=== PATIENT | female | born 1970 | race Two or more races ===

== ENCOUNTER 2016-04-23 14:09 | Emergency (ER) | payer OTHER ==
[~2016-04-23] VITALS: Ht 152.4 cm; Wt 77.1 kg
[2016-04-23] MEDS ORDERED: SODIUM CHLORIDE 0.9% 1,000 ML IVB ONE (14:33)
[2016-04-23] MEDS ORDERED: HYDROmorphone HCL 2 MG/ML VL IV ONE (14:45)
[2016-04-23] MEDS ORDERED: ONDANSETRON HCL 4 MG/2 ML VIAL IV ONE (14:45)
[2016-04-23 15:08] LABS: DEFINITIVE VIEW TRANSMISSION
[2016-04-23 15:14] LABS: Eosinophils # (auto) 0.9 uL; Platelet Count (auto) 472 10^3/uL (140-450)
[2016-04-23 15:15] LABS: Albumin 3.4 g/dL (3.4-5.0); Calcium 8.9 mg/dL (8.5-10.1); Potassium 3.6 mmol/L (3.5-5.1)
[2016-04-23 15:18] LABS: BUN/Creatinine Ratio 15.7; Bilirubin, Total 0.2 mg/dL (0.2-1.0); Total Protein 7.4 g/dL (6.4-8.2)
[2016-04-23 15:36] LABS: Basophils # (auto) 0.1 uL; Basophils % (auto) 0.7 % (0.0-2.0); Eosinophils % (auto) 8.3 % (0.0-7.0); Hematocrit 40.3 % (36.0-46.0); Hemoglobin 12.8 g/dL (12.2-16.2); Lymphocytes % (auto) 26.9 % (10.0-50.0); Mean Corpuscular Hemoglobin 26.9 pg (28.0-32.0); Mean Corpuscular Hgb Conc. 31.8 g/dL (32.0-36.0); Mean Corpuscular Volume 84.7 fL (80.0-100.0); Mean Platelet Volume 8.4 fL (7.4-10.4); Monocytes # (auto) 0.6 uL; Monocytes % (auto) 5.3 % (0.0-12.0); Neutrophils # (auto) 6.6 uL; Neutrophils % (auto) 58.8 % (37.0-80.0); Red Cell Distribution Width 13.9 % (11.6-16.0); White Blood Cell 11.3 10^3/uL (4.4-10.8)
[2016-04-23 16:13] VITALS: BP 165/89
[2016-04-23 17:01] LABS: Urine Bilirubin Negative (Negative); Urine Color Yellow (Yellow); Urine Glucose Normal (Normal); Urine Ketone Negative (Negative); Urine Mucus FEW (None Seen); Urine Nitrite Negative (Negative); Urine RBC 313 /hpf (0 - 4); Urine Squamous Epithelial Cell FEW /hpf (<5); Urine Urobilinogen Normal (Negative); Urine pH 6.5 (5.0-8.0)
[2016-04-23 17:02] LABS: Urine Blood 3+ /uL (Negative)
== END 2016-04-23 17:40 | disposition home or self-care (01) ==
LOC: EDUNIT# 14:09 → ER 14:17
DX: N20.9 Urinary calculus, unspecified (principal); I10 Essential (primary) hypertension; R19.7 Diarrhea, unspecified; Z88.6 Allergy status to analgesic agent
CPT/HCPCS: 36415; 74176; 80053; 81001; 82150; 83690; 84702; 85025; 93005; 94761; 96361; 96374; 96375; 99285; J1170; J2405; J7030

== ENCOUNTER 2020-07-06 19:59 | Emergency (ER) | payer OTHER ==
[~2020-07-06] VITALS: Ht 152.4 cm; Wt 77.1 kg
[2020-07-06] MEDS ORDERED: IOHEXOL 300 MG/ML 100ML BOTTLE IJ ONE (20:39)
[2020-07-06 21:37] LABS: Basophils # (auto) 0.1 10 ^3/uL (0-0.2); Basophils % (auto) 0.6 % (0.0-2.0); Eosinophils # (auto) 0.5 10 ^3/uL (0-0.8); Eosinophils % (auto) 3.8 % (0.0-7.0); Hemoglobin 14.7 g/dL (12.2-16.2); Lymphocytes # (auto) 2.5 10 ^3/uL (0.4-5.4); Lymphocytes % (auto) 19.4 % (10.0-50.0); Mean Corpuscular Hemoglobin 28.5 pg (28.0-32.0); Mean Corpuscular Hgb Conc. 33.4 g/dL (32.0-36.0); Mean Corpuscular Volume 85.4 fL (80.0-100.0); Monocytes # (auto) 0.6 10 ^3/uL (0-1.3); Monocytes % (auto) 4.7 % (0.0-12.0); Neutrophils # (auto) 9.1 10 ^3/uL (1.6-8.6); Neutrophils % (auto) 71.5 % (37.0-80.0); Nucleated Red Blood Cells % 0.4 %; Platelet Count (auto) 383 10^3/uL (140-450); Red Blood Cells 5.15 10^6/uL (4.0-5.20); Red Cell Distribution Width 13.6 % (11.8-14.3); White Blood Cell 12.7 10^3/uL (4.4-10.8)
[2020-07-06 22:04] LABS: Albumin 3.8 g/dL (3.4-5.0); Calcium 9.2 mg/dL (8.5-10.1); Potassium 4.1 mmol/L (3.5-5.1)
[2020-07-06 22:06] LABS: BUN/Creatinine Ratio 16.4; Bilirubin, Total 0.4 mg/dL (0.2-1.0); Total Protein 7.9 g/dL (6.4-8.2)
[2020-07-06] MEDS ORDERED: KETOROLAC TROMETH 60MG/2ML VIAL IM ONE (22:45)
[2020-07-06] MEDS ORDERED: ONDANSETRON ODT 4 MG TAB PO ONE (22:45)
[2020-07-06 22:50] LABS: Urine Bacteria NONE SEEN /hpf (None Seen); Urine Blood 3+ /uL (Negative); Urine Mucus FEW (None Seen); Urine Specific Gravity 1.016 (1.001-1.035); Urine WBC 12 /hpf (0 - 5)
== END 2020-07-06 23:43 | disposition home or self-care (01) ==
LOC: ER 19:59
DX: N39.0 Urinary tract infection, site not specified (principal); N83.202 Unspecified ovarian cyst, left side; N83.201 Unspecified ovarian cyst, right side; K80.20 Calculus of gallbladder without cholecystitis without obstruction; N20.0 Calculus of kidney; I10 Essential (primary) hypertension; E89.0 Postprocedural hypothyroidism; Z90.89 Acquired absence of other organs; Z88.5 Allergy status to narcotic agent
CPT/HCPCS: 36415; 74176; 80053; 81001; 83605; 85025; 96372; 99284; J1885; Q0162

== ENCOUNTER 2020-07-13 01:56 | Emergency (ER) | payer MEDICAID, OTHER ==
[~2020-07-13] VITALS: Ht 152.4 cm; Wt 74.8 kg
[2020-07-13 02:48] LABS: Basophils # (auto) 0.2 10 ^3/uL (0-0.2); Basophils % (auto) 1.3 % (0.0-2.0); Eosinophils # (auto) 0.2 10 ^3/uL (0-0.8); Eosinophils % (auto) 1.6 % (0.0-7.0); Hematocrit 42.5 % (36.0-46.0); Hemoglobin 14.5 g/dL (12.2-16.2); Lymphocytes # (auto) 1.8 10 ^3/uL (0.4-5.4); Lymphocytes % (auto) 13.4 % (10.0-50.0); Mean Corpuscular Hgb Conc. 34.1 g/dL (32.0-36.0); Mean Corpuscular Volume 85.3 fL (80.0-100.0); Monocytes # (auto) 0.8 10 ^3/uL (0-1.3); Monocytes % (auto) 5.7 % (0.0-12.0); Neutrophils # (auto) 10.5 10 ^3/uL (1.6-8.6); Nucleated Red Blood Cells % 0.1 %; Platelet Count (auto) 392 10^3/uL (140-450); Red Blood Cells 4.98 10^6/uL (4.0-5.20); Red Cell Distribution Width 13.5 % (11.8-14.3); White Blood Cell 13.5 10^3/uL (4.4-10.8)
[2020-07-13 02:55] LABS: Urine Bacteria NONE SEEN /hpf (None Seen); Urine Blood 1+ /uL (Negative); Urine WBC 1 /hpf (0 - 5)
[2020-07-13 03:18] LABS: Amylase 57 U/L (25-115); Anion Gap 9 (5-15); BUN/Creatinine Ratio 15.9; Blood Urea Nitrogen 22 mg/dL (7-18); Carbon Dioxide 24 mmol/L (21-32); Chloride 106 mmol/L (98-107); GFR African American 52 mL/min; GFR Non-African American 43 mL/min; Glucose 141 mg/dL (74-106); Lipase 54 U/L (73-393); Potassium 3.6 mmol/L (3.5-5.1); Sodium 139 mmol/L (136-145)
[2020-07-13 03:25] LABS: Alanine Aminotransferase 52 U/L (13-56); Albumin 3.8 g/dL (3.4-5.0); Alkaline Phosphatase 89 U/L (45-117); Aspartate Aminotransferase 24 U/L (15-37); Bilirubin, Total 0.5 mg/dL (0.2-1.0); Total Protein 8.3 g/dL (6.4-8.2)
[2020-07-13] MEDS ORDERED: MORPHINE SULFATE 4 MG/ML SYR/VIAL IV ONE (05:15)
[2020-07-13] MEDS ORDERED: ONDANSETRON HCL 4 MG/2 ML VIAL IV ONE ×2 (05:15→08:15)
[2020-07-13] MEDS ORDERED: HYDROmorphone HCL 2 MG/ML VL IV ONE (05:30)
[2020-07-13] MEDS ORDERED: SODIUM CHLORIDE 0.9% 1,000 ML IV ONE ×2 (06:45)
[2020-07-13] MEDS ORDERED: TAMSULOSIN HYDROCHLORIDE 0.4 MG CAP PO ONE (06:45)
[2020-07-13] MEDS ORDERED: KETOROLAC TROMETH 30 MG/ML 1ML VIAL IV ONE ×2 (08:15→12:30)
[2020-07-13 10:00] VITALS: BP 102/47
== END 2020-07-13 12:43 | disposition home or self-care (01) ==
LOC: ER 01:56
DX: N13.2 Hydronephrosis with renal and ureteral calculous obstruction (principal); N83.202 Unspecified ovarian cyst, left side; N83.201 Unspecified ovarian cyst, right side; Z20.822 Contact with and (suspected) exposure to COVID-19; I10 Essential (primary) hypertension; Z90.49 Acquired absence of other specified parts of digestive tract
CPT/HCPCS: 36415; 74176; 76830; 76856; 80053; 81001; 82150; 83605; 83690; 84484; 85025; 87426; 96361; 96374; 96375; 96376; 99285; J1170; J1885; J2405; J7030

== ENCOUNTER 2021-11-27 20:21 | Emergency (ER) | payer MEDICAID ==
[~2021-11-27] VITALS: Ht 152.4 cm; Wt 80.0 kg
[2021-11-27 21:34] LABS: Hematocrit 39.5 % (36.0-46.0); Hemoglobin 12.9 g/dL (12.2-16.2); Mean Corpuscular Hgb Conc. 32.7 g/dL (32.0-36.0); Mean Corpuscular Volume 85.5 fL (80.0-100.0); Red Blood Cells 4.62 10^6/uL (4.0-5.20); Red Cell Distribution Width 13.9 % (11.8-14.3); White Blood Cell 10.1 10^3/uL (4.4-10.8)
[2021-11-27 21:35] LABS: Albumin 3.6 g/dL (3.4-5.0); BUN/Creatinine Ratio 22.1; Calcium 8.2 mg/dL (8.5-10.1); Potassium 3.6 mmol/L (3.5-5.1)
[2021-11-27 21:36] LABS: Basophils % (manual) 0 (0.0-2.0); Blast Cells 0; Metamyelocytes % 0; Myelocytes % 0; Promyelocytes % 0; Reactive Lymphocytes 0
[2021-11-27 21:37] LABS: Bilirubin, Total 0.2 mg/dL (0.2-1.0); Total Protein 6.9 g/dL (6.4-8.2)
[2021-11-27 22:28] LABS: Band Neutrophils % (manual) 4; Eosinophils % (manual) 3 (0-7); Lymphocytes % (manual) 16 (10.0-50.0); Monocytes % (manual) 10 (0-12)
[2021-11-28 01:04] VITALS: BP 166/82
== END 2021-11-28 00:58 | disposition home or self-care (01) ==
LOC: ER 20:21
DX: R07.89 Other chest pain (principal); I10 Essential (primary) hypertension; E03.9 Hypothyroidism, unspecified; G43.909 Migraine, unspecified, not intractable, without status migrainosus; Z90.49 Acquired absence of other specified parts of digestive tract; Z90.89 Acquired absence of other organs; Z88.5 Allergy status to narcotic agent; Z88.1 Allergy status to other antibiotic agents
CPT/HCPCS: 36415; 71045; 80053; 83880; 84484; 85007; 85027; 93005

== ENCOUNTER 2023-08-18 08:30 | Emergency (ER) | payer MEDICAID, OTHER ==
[~2023-08-18] VITALS: Ht 172.7 cm; Wt 67.8 kg
[2023-08-18 09:32] VITALS: TEMP 98.4
[2023-08-18 10:01] LABS: Urine Bacteria None Seen /hpf (None Seen)
[2023-08-18 10:17] LABS: Urine Blood Negative /uL (Negative); Urine Clarity Clear (Clear); Urine Color Light-Yellow (Yellow); Urine Protein, UAD TRACE (Negative); Urine Specific Gravity 1.042 (1.001-1.035); Urine Urobilinogen Normal (Negative); Urine WBC 1 /hpf (0 - 5); Urine pH 5.5 (5.0-9.0)
[2023-08-18 10:23] LABS: Basophils # (auto) 0.1 10 ^3/uL (0-0.2); Basophils % (auto) 1.9 % (0.0-2.0); Eosinophils # (auto) 0.3 10 ^3/uL (0-0.8); Eosinophils % (auto) 4.4 % (0.0-7.0); Hematocrit 44.5 % (36.0-46.0); Lymphocytes # (auto) 2.4 10 ^3/uL (0.4-5.4); Lymphocytes % (auto) 33.7 % (10.0-50.0); Mean Corpuscular Hemoglobin 29.1 pg (28.0-32.0); Mean Corpuscular Hgb Conc. 33.7 g/dL (32.0-36.0); Mean Corpuscular Volume 86.4 fL (80.0-100.0); Monocytes # (auto) 0.4 10 ^3/uL (0-1.3); Nucleated Red Blood Cells % 0.1 %; Red Blood Cells 5.15 10^6/uL (4.0-5.20); Red Cell Distribution Width 13.2 % (11.8-14.3); White Blood Cell 7.2 10^3/uL (4.4-10.8)
[2023-08-18] MEDS: KETOROLAC TROMETH 60MG/2ML VIAL IM ONE (10:25)
[2023-08-18 10:42] LABS: Alanine Aminotransferase 21 U/L (7-40); Albumin 4.5 g/dL (3.2-4.8); Alkaline Phosphatase 126 U/L (46-116); Anion Gap 10 (5-15); Aspartate Aminotransferase 10 U/L (13-40); BUN/Creatinine Ratio 11.3 (10.0-20.0); Bilirubin, Total 0.5 mg/dL (0.2-1.0); Blood Urea Nitrogen 11 mg/dL (9-23); Calcium 9.7 mg/dL (8.7-10.4); Carbon Dioxide 21 mmol/L (20-30); Chloride 105 mmol/L (98-107); Glucose 377 mg/dL (74-106); Lipase 36 U/L (12-53); Sodium 136 mmol/L (136-145); Total Protein 7.6 g/dL (5.7-8.2)
[2023-08-18] MEDS: SODIUM CHLORIDE 0.9% 1,000 ML IV ONE ×2 (11:20→12:37)
[2023-08-18] MEDS: InsuLIN REG 1unit/0.01ml Soln (100units/ml) IV ONE (11:59)
[2023-08-18] MEDS: MEPERIDINE HCL (25 MG/ML) 1ML VIAL IV ONE (11:59)
[2023-08-18] MEDS: ONDANSETRON HCL 4 MG/2 ML VIAL IV ONE (11:59)
[2023-08-18 13:25] VITALS: O2SAT 98
[2023-08-18 13:26] VITALS: BP 143/79; PULSE 66; RESP 12
[2023-08-18] MEDS ORDERED: TRAM-626 PO (13:30)
== END 2023-08-18 13:48 | disposition home or self-care (01) ==
LOC: ER 08:30
DX: K80.20 Calculus of gallbladder without cholecystitis without obstruction (principal); E11.65 Type 2 diabetes mellitus with hyperglycemia; I10 Essential (primary) hypertension; Z91.148 Patient's other noncompliance with medication regimen for other reason; Z98.890 Other specified postprocedural states; Z88.8 Allergy status to other drugs, medicaments and biological substances; Z79.899 Other long term (current) drug therapy
CPT/HCPCS: 36415; 76705; 80053; 81001; 83690; 85025; 96361; 96372; 96374; 96375; 99285; J1815; J1885; J2175; J2405; J7030

== ENCOUNTER 2025-02-07 10:55 | Emergency (ER) | payer OTHER ==
[~2025-02-07] VITALS: Ht 160 cm; Wt 75.9 kg
[~2025-02-07 10:55] MED LIST: TRAM-626 PO
--- NOTE | 2025-02-07 11:22 | ED.PDOC ---
GI ASSESSMENT HPI Comments 54 y/o F, with PMHx of HTN, DM, and thyroid disease presents to the ED for CC of flank pain. Patient states, she has been experiencing right sided flank pain that radiates to her RUQ x5day. Patient relays, to have further associated symptoms of nausea and vomiting. Patient endorses, being seen at [facility] yesterday (02/06/25) and being departed home with no significant findings; endorses experiencing no relief since last being seen. Patient denies urinary symptoms, melena, diarrhea, fever, or chills. No other symptoms or modifying factors are present at this time. Chief Complaint: Flank Pain Time Seen by MD: 11:00 Primary Care Provider: [place] Reviewed Notes: Nurses Notes, Medications, Allergies Allergies: Coded Allergies: Morphine (Unverified Allergy, Unknown, 04/23/16) Uncoded Allergies: AMPICILIN (Allergy, Unknown, 04/23/16) Home Meds Active Scripts Tramadol HCl (Tramadol HCl) 50 Mg Tab, 50 MG PO TID, #20 TAB Prov:ALTON WORTHY 08/18/23 Information Source: Patient Mode of Arrival: Ambulatory Timing: Days Duration: Since onset Prehospital treatment: None Quality: Burning Vomitus: Watery Stool: Normal Severity: Moderate Recent: None Recent Hx of: None Pain Location: RUQ Modifying Factors: Nothing Associated sign and symptoms: Nausea, Vomiting, Abdominal Pain Past Medical History PAST MEDICAL HISTORY: DM, HTN, Thyroid Surgical History: Appendectomy, Thyroidectomy 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: No Pertinent 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 Family History Family History: Reviewed,noncontributory to illness Social History Smoker: Non-Smoker Alcohol: Denies ETOH Use Drugs: Denies Drug Use Lives In: Home Constitutional: denies: chills, diaphoresis, fatigue, fever, malaise, sweats, weakness, others EENTM: denies: blurred vision, double vision, ear bleeding, ear discharge, ear drainage, ear pain, ear ringing, eye pain, eye redness, hearing loss, mouth pain, mouth swelling, nasal discharge, nose bleeding, nose congestion, nose pain, photophobia, tearing, throat pain, throat swelling, voice changes, others Respiratory: denies: cough, hemoptysis, orthopnea, SOB at rest, shortness of breath, SOB with excertion, stridor, wheezing, others Cardiovascular: denies: chest pain, dizzy spells, diaphoresis, Dyspnea on exertion, edema, irregular heart beat, left arm pain, lightheadedness, palpitations, PND, syncope, others Gastrointestinal: reports: abdominal pain, nausea, vomiting; denies: abdomen distended, blood streaked bowels, constipated, diarrhea, dysphagia, difficulty swallowing, hematemesis, melena, poor appetite, poor fluid intake, rectal bleeding, rectal pain, others Genitourinary: reports: flank pain; denies: abnormal vagina bleeding, burning, dyspareunia, dysuria, frequency, hematuria, incontinence, pain, , vagina discharge, urgency, others Neurological: denies: dizziness, fainting, headache, left sided numbness, left sided weakness, numbness, paresthesia, pre-existing deficit, right sided numbness, right sided weakness, seizure, speech problems, tingling, tremors, weakness, others Musculoskeletal: denies: back pain, gout, joint pain, joint swelling, muscle pain, muscle stiffness, neck pain, others Integumetry: denies: bruises, change in color, change in hair/nails, dryness, laceration, lesions, lumps, rash, wounds, others Allergic/Immunocompromised: denies: Difficulty Healing, Frequent Infections, Hives, Itching, others Hematologic/Lymphatic: denies: anemia, blood clots, easy bleeding, easy bruising, swollen glands, others Endocrine: denies: excessive hunger, excessive sweating, excessive thirst, excessive urination, flushing, intolerance to cold, intolerance to heat, unexplained weight gain, unexplained weight loss, others Psychiatric: denies: anxiety, bipolar disorder, depression, hopeless, panic disorder, schizophrenia, sleepless, suicidal, others All Other Systems: Reviewed and Negative Physical Exam Exam Comments RIGHT FLANK TENDERNESS General Appearance: No Apparent Distress, Normal HEENT: Normal ENT Inspection, Pharynx Normal Neck: Full Range of Motion, Non-Tender, Normal, Normal Inspection Respiratory: Chest Non-Tender, Lungs Clear, No Accessory Muscle Use, No Respiratory Distress, Normal Breath Sounds Cardiovascular: No Edema, No Murmur, No Gallop, Normal Peripheral Pulses, Regul ar Rate/Rhythm Breast Exam: Deferred Gastrointestinal: No Organomegaly, No Pulsatile Mass, Normal Bowel Sounds, RUQ, Soft, Tenderness Genitalia: Deferred Pelvic: Deferred Rectal: Deferred Extremities: No calf tenderness, Normal capillary refill, Normal inspection, Normal range of motion, Non-tender, No pedal edema Musculoskeletal : Apperance: Normal Neurologic: Alert, radiocommunications technician II-XII nml as Tested, No Motor Deficits, Normal Affect, Normal Mood, No Sensory Deficits Cerebellar Function: Normal Reflexes: Normal Skin: Dry, Normal Color, Warm Lymphatic: No Adenopathy Was a procedure done? Was a procedure done?: No GI differential Dx Differential Diagnosis: Cholecystitis, Gastritis/PUD, Gastroenteritis, UTI, Urolithiasis X-Ray, Labs, Meds, VS Vital Signs Date Time Temp Pulse Resp B/P (MAP) Pulse Ox O2 Delivery O2 Flow Rate FiO2 02/07/25 12:47 81 16 151/72 02/07/25 11:30 88 17 175/92 02/07/25 11:07 80 02/07/25 10:57 97.5 82 16 172/100 96 97.5 Lab Test 02/07/25 12:32 02/07/25 11:19 Range/Units Troponin I High Sensitivity < 3 L < 3 L </=34 ng/L White Blood Count 9.9 4.4-10.8 10^3/uL Red Blood Count 5.08 4.0-5.20 10^6/uL Hemoglobin 14.4 12.2-16.2 g/dL Hematocrit 41.9 36.0-46.0 % Mean Corpuscular Volume 82.6 80.0-100.0 fL Mean Corpuscular Hemoglobin 28.3 28.0-32.0 pg Mean Corpuscular Hemoglobin Concent 34.3 32.0-36.0 g/dL Red Cell Distribution Width 13.7 11.8-14.3 % Platelet Count 390 140-450 10^3/uL Mean Platelet Volume 7.6 6.9-10.8 fL Neutrophils (%) (Auto) 71.7 37.0-80.0 % Lymphocytes (%) (Auto) 21.4 10.0-50.0 % Monocytes (%) (Auto) 4.4 0.0-12.0 % Eosinophils (%) (Auto) 1.7 0.0-7.0 % Basophils (%) (Auto) 0.8 0.0-2.0 % Neutrophils # (Auto) 7.1 1.6-8.6 10 ^3/uL Lymphocytes # (Auto) 2.1 0.4-5.4 10 ^3/uL Monocytes # (Auto) 0.4 0-1.3 10 ^3/uL Eosinophils # (Auto) 0.2 0-0.8 10 ^3/uL Basophils # (Auto) 0.1 0-0.2 10 ^3/uL Nucleated Red Blood Cells 0.0 % Sodium Level 138 136-145 mmol/L Potassium Level 3.4 L 3.5-5.1 mmol/L Chloride Level 103 98-107 mmol/L Carbon Dioxide Level 22 20-31 mmol/L Anion Gap 13 5-15 Blood Urea Nitrogen 12 9-23 mg/dL Creatinine 0.75 0.550-1.02 mg/dL Glomerular Filtration Rate Calc 94 >90 mL/min BUN/Creatinine Ratio 16.0 10.0-20.0 Serum Glucose 151 H 74-106 mg/dL Calcium Level 9.4 8.7-10.4 mg/dL Current Medications Medications (Trade) Dose Ordered Sig/Juancho Route Start Time Stop Time Status Last Admin Hydromorphone HCl (Dilaudid Injection) 0.8 mg ONCE ONCE IM 02/07/25 11:30 02/07/25 11:31 DC 02/07/25 11:30 [place] [id number] Ph: [phone] DIAGNOSTIC IMAGING Diagnostic Imaging Report : [id number] Signed PATIENT: KENTON MARTÍNEZCCT: [id number] UNIT: [id number] : 1970 LOC: ER ROOM / BED: / AGE / SEX: 54 / F ADM STATUS: REG ER SERVICE 1101 ORDERING PHYSICIAN: YESI URBINA MD PROCEDURE(s): CXRP - CHEST PORTABLE REASON: CHEST PAIN ORDER NUMBER(s): [id number], ACCESSION NUMBER(s): [id number] EXAM: XY CHEST PORTABLE Indication: CHEST PAIN Technique: Single frontal view of the chest was obtained Comparison: CHEST PORTABLE on DOS: 11/27/21, CXRP on DOS: 11/27/21 FINDINGS: Lines and Tubes: None Lungs: No focal consolidation. Pleura: No effusion. No pneumothorax. Cardiomediastinal contours: Unremarkable Bones: No acute osseous abnormality. IMPRESSION: No acute cardiopulmonary disease. ATED BY: AMINATA WAGONER MD DICTATED DATE/TIME: 02/07/25 1148 SIGNED BY: AMINATA WAGONER MD SIGNED DATE/TIME: 02/07/25 1148 CC: [place] [id number] Ph: [phone] DIAGNOSTIC IMAGING Diagnostic Imaging Report : [id number] Signed PATIENT: KENTON MARTÍNEZCCT: [id number] UNIT: [id number] : 1970 LOC: ER ROOM / BED: / AGE / SEX: 54 / F ADM STATUS: REG ER SERVICE 16 ORDERING PHYSICIAN: JESSY RUSSO PROCEDURE(s): ABDC - ABDOMEN COMPLETE SONOGRAM REASON: RUQ pain AND FLANK PAIN ORDER NUMBER(s): [id number], ACCESSION NUMBER(s): [id number] INDICATION: RUQ pain AND FLANK PAIN TECHNIQUE: Multiple real-time sonographic images of the abdomen were obtained. COMPARISON: US GALLBLADDER on DOS: 08/18/23, CT ABD PELVIS WO CONTRAST on DOS: 07/13/20, CT ABD PELVIS WO CONTRAST on DOS: 07/06/20 FINDINGS: Liver is increased in echogenicity. The liver measures 18.5 cm. No intrahepatic biliary ductal dilatation is noted. Post cholecystectomy. The common duct measures 0.9 cm and is unremarkable. The right kidney measures 10.9 cm. No hydronephrosis. The left kidney measures 11.0 cm. No hydronephrosis. The spleen measures 10.9 cm, within normal limits. The echogenicity is within normal limits. The pancreas is not well visualized due to obscuration from bowel gas. The visualized portions of the IVC and aorta are grossly unremarkable. IMPRESSION: Hepatic steatosis and hepatomegaly. ATED BY: SANTY NOWAK MD DICTATED DATE/TIME: 02/07/25 1207 SIGNED BY: SANTY NOWAK MD SIGNED DATE/TIME: 02/07/25 1207 CC: X-Ray, Labs, Meds, VS Comment Imaging was reviewed by this provider, there is no obvious pathological or acute disease process. Pending radiology review Labs were reviewed by this provider, no abnormalities Vital signs reviewed by this provider, clinically stable Patient's pain is able to be elicited with palpation of the musculoskeletal region. Patient reports relief of the pain with deep palpation. Pain appears to be more musculoskeletal in nature as pain can be elicited with palpation of the musculature Secondary concerned that may be shingles as the pain does follow a dermatome on the right side though there is no rash or lesions noted at this time. Time of 1ST Reevaluation: 11:30 Reevaluation 1ST: Unchanged Patient Education/Counseling: Diagnosis, Treatment, Need For Follow Up (Follow up with PCP next available appointment. Return to the emergency department if symptoms worsen.) Family Education/Counseling: Diagnosis, Treatment SEPSIS Sepsis Screen Date sepsis recognized/suspect: Feb 07, 2025 Time Sepsis recognized/suspect: 1100 Recent Procedure: No On Antibiotic Therapy: No Respiratory Rate >20: No Heart Rate >90: No Temp<36 C (96.8 F) or >38.3 C: No SBP <90 or MAP <65 mmHG: No New Acute Mental Status Change: No Is the patient on CPAP, BIPAP,: No Physician Orders Troponin-I Hs (02/07/25 18:00) Urinalysis (02/07/25 11:01) Chest Portable (02/07/25 11:01) Electrocardigram (02/07/25 12:01) Electrocardigram (02/07/25 14:01) Abdomen Complete Sonogram (02/07/25 11:17) Vital Signs Date Time Temp Pulse Resp B/P (MAP) Pulse Ox O2 Delivery O2 Flow Rate FiO2 02/07/25 12:47 81 16 151/72 02/07/25 11:30 88 17 175/92 02/07/25 11:07 80 02/07/25 10:57 97.5 82 16 172/100 96 97.5 Laboratory Tests Test 02/07/25 11:19 White Blood Count 9.9 10^3/uL (4.4-10.8) Medications Medications Dose Ordered Sig/Juancho Route Start Time Stop Time Status Last Admin Dose Admin Hydromorphone HCl 0.8 mg ONCE ONCE IM 02/07/25 11:30 02/07/25 11:31 DC 02/07/25 11:30 Departure 1 Departure Time of Disposition: 14:55 Impression: Primary Impression: Muscle pain Additional Impression: Flank pain Qualified Codes: R10.A1 - Flank pain, right side Disposition: HOME / SELF CARE / HOMELESS Condition: Fair e-Prescriptions Ibuprofen Micronized (Ibuprofen) 800 Mg Tab 800 MG PO TID PRN, #60 TAB Prov: VARGAS*FELIZER E USER ACCEPTANCE TESTER 02/07/25 Cyclobenzaprine Hcl (Cyclobenzaprine Hcl) 10 Mg Tab 10 MG PO BID PRN, #40 TAB Prov: VARGAS*ROLANDOPHER E USER ACCEPTANCE TESTER 02/07/25 Discharged With: Self Critical Care Note Critical Care Time?: No Stability Stability form required: No Heart Score Heart Score: Heart Score Response (Comments) Value History N/A 0 EKG N/A 0 Age N/A 0 Risk Factors N/A 0 Troponin N/A 0 Total 0 I personally scribed for VARGAS*,ROLANDOPHER E USER ACCEPTANCE TESTER (DVRUICH) on 02/07/25 at 11:22. Electronically submitted by Neida Sawant (OQO). I personally scribed for VARGAS*,CHRISTOPHER E USER ACCEPTANCE TESTER (DVRUICH) on 02/07/25 at 12:13. Electronically submitted by Neida Sawant (OQO). I personally scribed for VARGAS*,CHRISTOPHER E USER ACCEPTANCE TESTER (DVRUICH) on 02/07/25 at 12:14. Electronically submitted by Neida Sawant (OQO). VARGAS*,CHRISTOPHER E USER ACCEPTANCE TESTER Feb 07, 2025 11:22
[2025-02-07] MEDS: HYDROmorphone HCL 2 MG/ML VL/or syr IM ONE (11:30)
[2025-02-07 11:45] LABS: Hematocrit 41.9 % (36.0-46.0); Hemoglobin 14.4 g/dL (12.2-16.2); Mean Corpuscular Hemoglobin 28.3 pg (28.0-32.0); Mean Corpuscular Volume 82.6 fL (80.0-100.0); Nucleated Red Blood Cells % 0.0 %
--- NOTE | 2025-02-07 11:50 | DVH ---
EXAM: XY CHEST PORTABLE Indication: CHEST PAIN Technique: Single frontal view of the chest was obtained Comparison: CHEST PORTABLE on DOS: 11/27/21, CXRP on DOS: 11/27/21 FINDINGS: Lines and Tubes: None Lungs: No focal consolidation. Pleura: No effusion. No pneumothorax. Cardiomediastinal contours: Unremarkable Bones: No acute osseous abnormality. IMPRESSION: No acute cardiopulmonary disease.
--- NOTE | 2025-02-07 12:09 | DVH ---
INDICATION: RUQ pain AND FLANK PAIN TECHNIQUE: Multiple real-time sonographic images of the abdomen were obtained. COMPARISON: US GALLBLADDER on DOS: 08/18/23, CT ABD PELVIS WO CONTRAST on DOS: 07/13/20, CT ABD PELVIS WO CONTRAST on DOS: 07/06/20 FINDINGS: Liver is increased in echogenicity. The liver measures 18.5 cm. No intrahepatic biliary ductal dilatation is noted. Post cholecystectomy. The common duct measures 0.9 cm and is unremarkable. The right kidney measures 10.9 cm. No hydronephrosis. The left kidney measures 11.0 cm. No hydronephrosis. The spleen measures 10.9 cm, within normal limits. The echogenicity is within normal limits. The pancreas is not well visualized due to obscuration from bowel gas. The visualized portions of the IVC and aorta are grossly unremarkable. IMPRESSION: Hepatic steatosis and hepatomegaly.
[2025-02-07 12:45] LABS: Anion Gap 13 (5-15); Carbon Dioxide 22 mmol/L (20-31); Chloride 103 mmol/L (98-107); Sodium 138 mmol/L (136-145)
[2025-02-07 12:46] LABS: Calcium 9.4 mg/dL (8.7-10.4)
[2025-02-07 12:51] LABS: BUN/Creatinine Ratio 16.0 (10.0-20.0); Blood Urea Nitrogen 12 mg/dL (9-23)
[2025-02-07 12:59] LABS: Glucose 151 mg/dL (74-106); Potassium 3.4 mmol/L (3.5-5.1)
--- NOTE | 2025-02-07 13:07 | ECG ---
[facility] Test Date: 2025-02-07 Test Time: 11:07:53 Pat Name: VALE MARTÍNEZ Department: ED Room: Gender: F [employer]ogul Operator: PANCHO : 1970 Requested By: YESI URBINA Order Number: [id number] Reading MD: Adrian Riley Measurements Intervals [place] Rate: 80 P: 62 NE: 156 QRS: -20 QRSD: 99 T: 21 QT: 534 QTc: 617 Interpretive Statements Sinus rhythm Probable left atrial enlargement Borderline left axis deviation Anteroseptal infarct, age indeterminate Prolonged QT interval Electronically Signed On 02-07-2025 19:25:58 PST by Adrian Riley Please click the below link to view image of tracing.
[2025-02-07] MEDS ORDERED: CYCL-839 PO (14:58)
[2025-02-07] MEDS ORDERED: IBUP-1455 PO (14:58)
[2025-02-07 15:11] VITALS: BP 132/72; PULSE 84; RESP 14; TEMP 98; O2SAT 98
[2025-02-07] MEDS ORDERED: methylPREDNISolone SOD SUCC 125 MG/2 ML VL ONE (16:11)
[2025-02-07] MEDS ORDERED: CYCLOBENZAPRINE HCL 10 MG TAB ONE (16:11)
[2025-02-07] MEDS: CYCLOBENZAPRINE HCL 10 MG TAB PO ONE (16:17)
[2025-02-07] MEDS: methylPREDNISolone SOD SUCC 125 MG/2 ML VL IM ONE (16:18)
[2025-02-08] MEDS ORDERED: HYDR-4902 PO (08:25)
[2025-02-08] MEDS ORDERED: TAMS-35 PO (08:25)
== END 2025-02-07 16:34 | disposition home or self-care (01) ==
LOC: ER 10:55
DX: R10.A1 Flank pain, right side (principal); R11.2 Nausea with vomiting, unspecified; E11.9 Type 2 diabetes mellitus without complications; I10 Essential (primary) hypertension; Z79.899 Other long term (current) drug therapy; Z90.89 Acquired absence of other organs; Z90.49 Acquired absence of other specified parts of digestive tract; Z88.5 Allergy status to narcotic agent
CPT/HCPCS: 36415; 71045; 76700; 80048; 84484; 85025; 93005; 96372; 99285; J1171; J2919

== ENCOUNTER 2025-02-08 05:32 | Emergency (ER) | payer OTHER ==
[~2025-02-08] VITALS: Ht 152.4 cm; Wt 75.9 kg
[~2025-02-08 05:32] MED LIST changes: +CYCL-839 PO; +IBUP-1455 PO
--- NOTE | 2025-02-08 06:58 | DVH ---
EXAM: CT HEAD WITHOUT CONTRAST INDICATION: Headache, hx of brain ca TECHNIQUE: CT of the head without intravenous contrast. Coronal and sagittal reformatted images are submitted. Radiation Dose : 1. Head: CT Dose: CTDI volume is 54.46 mGy. Dose-length product is 962.7 mGy*cm The dose indicators for CT are the volume Computed Tomography (CT) Dose Index (CTDIvol) and the Dose Length Product (DLP), and are measured in units of mGy and mGy-cm, respectively. These indicators are not patient dose, but values generated from the CT scanner acquisition factors. The report includes radiation exposure data for exposures received during this examination. All CT scans at this medical facility are performed using dose modulation techniques as appropriate to a performed exam including the following: Automated exposure control was utilized; adjustment of the MA and/or KV according to patient size; and use of iterative reconstruction technique. COMPARISON: None FINDINGS: There is no evidence of acute intracranial hemorrhage, extra-axial collection, mass effect, midline shift, herniation or hydrocephalus. The ventricles, sulci and cisterns are age appropriate. The davenport-white differentiation is intact. The visualized paranasal sinuses and mastoid air cells are clear. No depressed calvarial fracture. The surrounding soft tissues are unremarkable. IMPRESSION: 1. No evidence of acute intracranial abnormality.
--- NOTE | 2025-02-08 07:03 | ED.PDOC ---
History of Present Illness HPI Comments A 54 YEAR OLD FEMALE PRESENTS TO THE ED WITH COMPLAINT OF HEADACHE AND RIGHT FLANK PAIN. PATIENT STATES SHE HAS BEEN EXPERIENCING RIGHT FLANK PAIN FOR THE PAST 5 DAYS. PATIENT REPORTS SHE HAS ALSO BEEN EXPERIENCING A HEADACHE THAT STARTED YESTERDAY. PATIENT NOTES SHE HAS A HISTORY OF MIGRAINE HEADACHES, BUT NO KAYLA HER PAIN IS DIFFERENT COMPARED TO HER PREVIOUS HEADACHES IN THE PAST. PATIENT WAS HERE IN THIS ED FOR THE SAME COMPLAINT EARLY THIS MORNING WHERE BLOOD TESTS AN ULTRASOUND OF HER ABDOMEN, AND A CHEST X RAY WAS DONE ALL OF WHICH WAS NORMAL. PT WAS DISCHARGED HOME AND CAME BACK ER AGAIN FOR HER HEADACHE AND RIGHT SIDE FLANK PAIN. PT REQUESTS DILAUDID PAIN MEDICATION AT THIS TIME. PATIENT DENIES VISION CHANGES, SLURRED SPEECH, ONE-SIDED WEAKNESS, FACIAL DROOP, DYSURIA, HEMATURIA, FEVER, CHILLS, SHORTNESS OF BREATH, CHEST PAIN, ABDOMINAL PAIN, NAUSEA, VOMITING, OR OTHER COMPLAINTS. NO OTHER SYMPTOMS OR MODIFYING FACTORS AT THIS TIME. PATIENT IS ALERT, ORIENTED X 4, AND HAS STEADY GAIT. Chief Complaint: Headache Time Seen by MD: 06:21 Primary Care Provider: carrington Yu Notes: Nurses Notes, Medications, Allergies Allergies: Coded Allergies: Morphine (Unverified Allergy, Unknown, 04/23/16) Uncoded Allergies: AMPICILIN (Allergy, Unknown, 04/23/16) Home Meds Active Scripts Ibuprofen Micronized (Ibuprofen) 800 Mg Tab, 800 MG PO TID PRN, #60 TAB Prov:JESSY RUSSO MECHANICAL INSPECTOR 02/07/25 Cyclobenzaprine Hcl (Cyclobenzaprine Hcl) 10 Mg Tab, 10 MG PO BID PRN, #40 TAB Prov:JESSY RUSSO MECHANICAL INSPECTOR 02/07/25 Tramadol HCl (Tramadol HCl) 50 Mg Tab, 50 MG PO TID, #20 TAB Prov:ALTON WORTHY 08/18/23 Information Source: Patient Mode of Arrival: Ambulatory Severity: Moderate Timing: Days Duration: Since onset, Days Prehospital treatment: None Medication Refill: For: Other (HEADACHE AND RIGHT FLANK PAIN) Past Medical History PAST MEDICAL HISTORY: DM, HTN, Thyroid Past Medical History (Other): MIGRAINE HEADACHES Surgical History: Appendectomy, Cholecystectomy, Thyroidectomy 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 Family History Family History: Reviewed,noncontributory to illness Social History Smoker: Non-Smoker Alcohol: Denies ETOH Use Drugs: Denies Drug Use Lives In: Home Constitutional: denies: chills, diaphoresis, fatigue, fever, malaise, sweats, weakness, others EENTM: denies: blurred vision, double vision, ear bleeding, ear discharge, ear drainage, ear pain, ear ringing, eye pain, eye redness, hearing loss, mouth pain, mouth swelling, nasal discharge, nose bleeding, nose congestion, nose pain, photophobia, tearing, throat pain, throat swelling, voice changes, others Respiratory: denies: cough, hemoptysis, orthopnea, SOB at rest, shortness of breath, SOB with excertion, stridor, wheezing, others Cardiovascular: denies: chest pain, dizzy spells, diaphoresis, Dyspnea on exertion, edema, irregular heart beat, left arm pain, lightheadedness, palpitations, PND, syncope, others Gastrointestinal: reports: nausea, vomiting; denies: abdomen distended, abdominal pain, blood streaked bowels, constipated, diarrhea, dysphagia, difficulty swallowing, hematemesis, melena, poor appetite, poor fluid intake, rectal bleeding, rectal pain, others Genitourinary: reports: flank pain; denies: abnormal vagina bleeding, burning, dyspareunia, dysuria, frequency, hematuria, incontinence, pain, , vagina discharge, urgency, others Neurological: reports: headache; denies: dizziness, fainting, left sided numbn ess, left sided weakness, numbness, paresthesia, pre-existing deficit, right sided numbness, right sided weakness, seizure, speech problems, tingling, tremors, weakness, others Musculoskeletal: denies: back pain, gout, joint pain, joint swelling, muscle pain, muscle stiffness, neck pain, others Integumetry: denies: bruises, change in color, change in hair/nails, dryness, laceration, lesions, lumps, rash, wounds, others Allergic/Immunocompromised: denies: Difficulty Healing, Frequent Infections, Hives, Itching, others Hematologic/Lymphatic: denies: anemia, blood clots, easy bleeding, easy bruising, swollen glands, others Endocrine: denies: excessive hunger, excessive sweating, excessive thirst, excessive urination, flushing, intolerance to cold, intolerance to heat, unexplained weight gain, unexplained weight loss, others Psychiatric: denies: anxiety, bipolar disorder, depression, hopeless, panic disorder, schizophrenia, sleepless, suicidal, others All Other Systems: Reviewed and Negative Physical Exam General Appearance: Mild Distress, Normal HEENT: Normal ENT Inspection, PERRL/EOMI, Pharynx Normal, TMs Normal Neck: Full Range of Motion, Non-Tender, Normal, Normal Inspection Respiratory: Chest Non-Tender, Lungs Clear, No Accessory Muscle Use, No Respiratory Distress, Normal Breath Sounds Cardiovascular: No Edema, No JVD, No Murmur, No Gallop, Normal Peripheral Pulse s, Regular Rate/Rhythm Breast Exam: Deferred Gastrointestinal: No Organomegaly, No Pulsatile Mass, Normal Bowel Sounds, Soft, Tenderness (RIGHT SIDE FLANKWITH CVA TENDERNESS, NO GUARDING AND REBOUND TENDERNESS. ) Genitalia: Deferred Pelvic: Deferred Rectal: Deferred Extremities: No calf tenderness, Normal capillary refill, Normal inspection, Normal range of motion, Non-tender, No pedal edema Musculoskeletal : Apperance: Normal Neurologic: Alert, plasma cutting machine operator II-XII nml as Tested, Headache, No Motor Deficits, Normal Affect, Normal Mood, No Sensory Deficits Cerebellar Function: Normal Reflexes: Normal Skin: Dry, Normal Color, Warm Peripheral Pulses: 2+ carotid (R), 2+ carotid (L) Lymphatic: No Adenopathy Was a procedure done? Was a procedure done?: No Differential Dx Considerations may include: MIGRAINE HEADACHE, TENSION HEADACHE, BRAIN MASS, BRAIN BLEED, ANXIETY REACTION, UTI, ACUTE CYSTITIS, RENAL STONE, PYELONEPHRITIS, MUSCLE STRAIN, MUSCLE SPASM X-Ray, Labs, Meds, VS Vital Signs Date Time Temp Pulse Resp B/P (MAP) Pulse Ox O2 Delivery O2 Flow Rate FiO2 02/08/25 07:27 79 18 97 Room Air 02/08/25 07:27 98.6 79 18 175/84 (114) 97 98.6 02/08/25 05:33 98.2 89 16 174/96 93 98.2 Current Medications Medications (Trade) Dose Ordered Sig/Juancho Route Start Time Stop Time Status Last Admin Sodium Chloride 500 ml @ 500 mls/hr Q1H ONCE IV 02/08/25 07:15 02/08/25 08:14 DC 02/08/25 07:22 Sodium Chloride 500 ml @ 500 mls/hr Q1H ONCE IV 02/08/25 08:00 02/08/25 08:59 02/08/25 07:53 Exam: CT CT AB PEL WO CON-NO ORAL OR IV History: RIGHT FLANK PAIN Comparison Study: Ultrasound of the abdomen dated 02/07/2025 Technique: Multidetector spiral CT of the abdomen and pelvis was performed from lung bases to pubic symphysis. Imaging was performed without intravenous contrast. Coronal and sagittal multiplanar reformats were obtained from the axial data set by the technologist. Radiation Dose : 1. Abdomen/Pelvis: CTDIvol 11.8 mGy, DLP 549.1 mGy*cm. Findings: Evaluation of vasculature and solid organs is limited due to lack of intravenous contrast use. Lung Bases: Lung bases are clear. Visualized portions of the heart and pericardium are unremarkable. Liver: The liver is normal in size. No focal lesions. Diffusely hypoattenuating liver parenchyma consistent with hepatic steatosis. Gallbladder and Biliary Tree: The gallbladder is surgically absent. No intrahepatic or extrahepatic biliary ductal dilatation. Spleen: Unremarkable Pancreas: The pancreas is grossly unremarkable. Adrenal Glands: Unremarkable Kidneys: Kidneys show punctate left renal calculus. No hydronephrosis. No right renal calculi. There is a 1.0 cm fatty mass in the upper pole of the left kidney with minimal soft tissue density in the cranial most aspect of the mass. GI tract: The stomach is grossly normal in appearance. No evidence of small bowel wall thickening or abnormal dilatation to suggest bowel obstruction. The colon is unremarkable. The appendix is not visualized and there are postsurgical changes of the base of the cecum. Peritoneum/mesentery/retroperitoneum. No evidence of free intraperitoneal air. No ascites. No evidence of suspicious lymphadenopathy. Abdominal Wall: Unremarkable. Vasculature: The visualized abdominal aorta is normal in size and caliber. Evaluation of abdominal and pelvic vessels is limited due to lack of intravenous contrast. Urinary Bladder: Grossly unremarkable for degree of distention. Pelvic Organs: There is low-density thickening of the endometrium measuring up to 1.9 cm in thickness. There is a left adnexal cystic mass measuring 3.8 cm. There is a right adnexal cystic mass measuring 2.2 cm. Musculoskeletal: No aggressive focal bony lesions, acute fractures or dislocation. IMPRESSION: 1. No acute abdominal or pelvic findings. 2. Punctate left renal calculus. 3. Low-density thickening of the endometrium measuring up to 1.9 cm in thickness. Recommend further evaluation with pelvic ultrasound and gynecologic follow-up. 4. Bilateral adnexal cystic masses measuring up to 3.8 cm on the left. Recommend further evaluation with pelvic ultrasound. ATED BY: JOSE JACOBO MD DICTATED DATE/TIME: 02/08/25724 SIGNED BY: JOSE JACOBO MD SIGNED DATE/TIME: 02/08/25724 CC: EXAM: CT HEAD WITHOUT CONTRAST INDICATION: Headache, hx of brain ca TECHNIQUE: CT of the head without intravenous contrast. Coronal and sagittal reformatted images are submitted. Radiation Dose : 1. Head: CT Dose: CTDI volume is 54.46 mGy. Dose-length product is 962.7 mGy*cm The dose indicators for CT are the volume Computed Tomography (CT) Dose Index (CTDIvol) and the Dose Length Product (DLP), and are measured in units of mGy and mGy-cm, respectively. These indicators are not patient dose, but values generated from the CT scanner acquisition factors. The report includes radiation exposure data for exposures received during this examination. All CT scans at this medical facility are performed using dose modulation techniques as appro priate to a performed exam including the following: Automated exposure control was utilized; adjustment of the MA and/or KV according to patient size; and use of iterative reconstruction technique. COMPARISON: None FINDINGS: There is no evidence of acute intracranial hemorrhage, extra-axial collection, mass effect, midline shift, herniation or hydrocephalus. The ventricles, sulci and cisterns are age appropriate. The davenport-white differentiation is intact. The visualized paranasal sinuses and mastoid air cells are clear. No depressed calvarial fracture. The surrounding soft tissues are unremarkable. IMPRESSION: 1. No evidence of acute intracranial abnormality. ATED BY: JOSE JACOBO MD DICTATED DATE/TIME: 02/08/25655 SIGNED BY: JOSE JACOBO MD SIGNED DATE/TIME: 02/08/25655 CC: X-Ray, Labs, Meds, VS Comment EXTERNAL MEDICAL RECORDS REVIEWED: [NONE] INDEPENDENT HISTORIANS: [NONE] SOCIAL DETERMINANTS OF HEALTH: [NONE] LABS ORDERED: NONE REVIEWED AND INTERPRETED RESULTS: NONE IMAGING ORDERED: CT ABD/PEL, CT BRAIN TREATMENTS ORDERED: NS 1 L IV, ZOFRAN 4 MG IV, DILAUDID 1 MG IV PROCEDURES PERFORMED: NONE CRITICAL CARE TIME: NONE I HAVE DISCUSSED THE PATIENT WITH THE ATTENDING PHYSICIAN DR. URBINA AND HE AGREES WITH THE PATIENT'S PLAN OF CARE AND DISPOSITION. BASED ON HISTORY OF PRESENT ILLNESS, AND PHYSICAL EXAM, PATIENT WILL BE DISCHARGED HOME. DISCUSSED PLAN FOR DISCHARGE HOME WITH RX [NORCO 5/325 MG AND FLOMAX]. MEDICATION WARNINGS GIVEN. SHARED DECISION MAKING: DISCUSSED WITH PATIENT THAT THEIR WORKUP WAS NORMAL. PATIENT INSTRUCTED TO FOLLOW UP WITH PRIMARY CARE PROVIDER IN 1-2 DAYS FOR RE-EVALUATION OF SYMPTOMS. PATIENT VERBALIZES UNDERSTANDING TO RETURN TO ED FOR NEW OR WORSENING SYMPTOMS OR IF FOLLOW UP WITH PCP CANNOT BE OBTAINED. PATIENT FEELS COMFORTABLE GOING HOME AT THIS TIME. ALL QUESTIONS ADDRESSED AT TIME OF DISCHARGE. Images Reviewed?: Images reviewed and evaluated by me Time of 1ST Reevaluation: 09:00 Reevaluation 1ST: Improved Patient Education/Counseling: Diagnosis, Treatment, Need For Follow Up Family Education/Counseling: Diagnosis, Treatment, Need For Follow Up Medical Screening: No EMC Exist At This Time SEPSIS Sepsis Screen Date sepsis recognized/suspect: Feb 08, 2025 Time Sepsis recognized/suspect: 0538 Recent Procedure: No On Antibiotic Therapy: No Respiratory Rate >20: No Heart Rate >90: No Temp<36 C (96.8 F) or >38.3 C: No SBP <90 or MAP <65 mmHG: No New Acute Mental Status Change: No Is the patient on CPAP, BIPAP,: No Physician Orders Head Without Contrast (02/08/25 06:17) Ct Ab Pel Wo Con-No Oral Or Iv (02/08/25 06:41) Heplock Iv (02/08/25 ) Sodium Chloride 0.9% (02/08/25 08:00) Vital Signs Date Time Temp Pulse Resp B/P (MAP) Pulse Ox O2 Delivery O2 Flow Rate FiO2 02/08/25 07:27 79 18 97 Room Air 02/08/25 07:27 98.6 79 18 175/84 (114) 97 98.6 02/08/25 05:33 98.2 89 16 174/96 93 98.2 Medications Medications Dose Ordered Sig/Juancho Route Start Time Stop Time Status Last Admin Dose Admin Sodium Chloride 500 ml @ 500 mls/hr Q1H ONCE IV 02/08/25 07:15 02/08/25 08:14 DC 02/08/25 07:22 Sodium Chloride 500 ml @ 500 mls/hr Q1H ONCE IV 02/08/25 08:00 02/08/25 08:59 02/08/25 07:53 Departure 1 Departure Time of Disposition: 09:00 Impression: Primary Impression: Migraine headache without aura Qualified Codes: G43.009 - Migraine without aura, not intractable, without status migrainosus Additional Impressions: Left renal stone Adnexal cyst Disposition: HOME / SELF CARE / HOMELESS Condition: Stable Additional Instructions: FOLLOW-UP WITH PCP IN 1 TO 2 DAYS FOR REFERRAL TO [facility]PR[facility] AND UROLOGIST. TAKE MEDICATIONS PRESCRIBED. RETURN TO ED FOR ANY NEW OR WORSENING SYMPTOMS. e-Prescriptions Hydrocodone-Acetaminophen (Hydrocodone Bitartrate/AC 5-325 mg) 1 Tab Tab 1 TAB PO TID, #15 TAB Prov: ALTON WORTHY 02/08/25 Tamsulosin Hcl (Flomax) 0.4 Mg Cap 1 CAP PO DAILY, #30 CAP Prov: ALTON WORTHY 02/08/25 Discharged With: Self, Relative Critical Care Note Critical Care Time?: No Stability Stability form required: No I personally scribed for ALTON WORTHY ([email or web address]) on 02/08/25 at 07:03. Electronically submitted by Ted Hanson ([email or web address]). I personally scribed for ALTON WORTHY ([email or web address]) on 02/08/25 at 07:31. Electronically submitted by Ted Hanson ([email or web address]). I personally scribed for ALTON WORTHY ([email or web address]) on 02/08/25 at 07:37. Electronically submitted by Ted Hanson ([email or web address]). I personally scribed for ALTON WORTHY ([email or web address]) on 02/08/25 at 07:38. Electronically submitted by Ted Hanson ([email or web address]). I personally scribed for ALTON WORTHY ([email or web address]) on 02/08/25 at 07:45. Electronically submitted by Ted Hanosn ([email or web address]). ALTON WORTHY Feb 08, 2025 07:03
[2025-02-08] MEDS: HYDROmorphone HCL 2 MG/ML VL/or syr IV ONE (07:15)
[2025-02-08] MEDS: ONDANSETRON HCL 4 MG/2 ML VIAL IV ONE (07:15)
[2025-02-08] MEDS: SODIUM CHLORIDE 0.9% 500 ML IV ONE ×2 (07:22→07:53)
[2025-02-08 07:27] VITALS: PULSE 79; RESP 18; TEMP 98.6; O2SAT 97
--- NOTE | 2025-02-08 07:27 | DVH ---
Exam: CT CT AB PEL WO CON-NO ORAL OR IV History: RIGHT FLANK PAIN Comparison Study: Ultrasound of the abdomen dated 02/07/2025 Technique: Multidetector spiral CT of the abdomen and pelvis was performed from lung bases to pubic symphysis. Imaging was performed without intravenous contrast. Coronal and sagittal multiplanar reformats were obtained from the axial data set by the technologist. Radiation Dose : 1. Abdomen/Pelvis: CTDIvol 11.8 mGy, DLP 549.1 mGy*cm. Findings: Evaluation of vasculature and solid organs is limited due to lack of intravenous contrast use. Lung Bases: Lung bases are clear. Visualized portions of the heart and pericardium are unremarkable. Liver: The liver is normal in size. No focal lesions. Diffusely hypoattenuating liver parenchyma consistent with hepatic steatosis. Gallbladder and Biliary Tree: The gallbladder is surgically absent. No intrahepatic or extrahepatic biliary ductal dilatation. Spleen: Unremarkable Pancreas: The pancreas is grossly unremarkable. Adrenal Glands: Unremarkable Kidneys: Kidneys show punctate left renal calculus. No hydronephrosis. No right renal calculi. There is a 1.0 cm fatty mass in the upper pole of the left kidney with minimal soft tissue density in the cranial most aspect of the mass. GI tract: The stomach is grossly normal in appearance. No evidence of small bowel wall thickening or abnormal dilatation to suggest bowel obstruction. The colon is unremarkable. The appendix is not visualized and there are postsurgical changes of the base of the cecum. Peritoneum/mesentery/retroperitoneum. No evidence of free intraperitoneal air. No ascites. No evidence of suspicious lymphadenopathy. Abdominal Wall: Unremarkable. Vasculature: The visualized abdominal aorta is normal in size and caliber. Evaluation of abdominal and pelvic vessels is limited due to lack of intravenous contrast. Urinary Bladder: Grossly unremarkable for degree of distention. Pelvic Organs: There is low-density thickening of the endometrium measuring up to 1.9 cm in thickness. There is a left adnexal cystic mass measuring 3.8 cm. There is a right adnexal cystic mass measuring 2.2 cm. Musculoskeletal: No aggressive focal bony lesions, acute fractures or dislocation. IMPRESSION: 1. No acute abdominal or pelvic findings. 2. Punctate left renal calculus. 3. Low-density thickening of the endometrium measuring up to 1.9 cm in thickness. Recommend further evaluation with pelvic ultrasound and gynecologic follow-up. 4. Bilateral adnexal cystic masses measuring up to 3.8 cm on the left. Recommend further evaluation with pelvic ultrasound.
[2025-02-08] MEDS: HYDROMORPHONE HCL 1 MG/ML INJ ONE (08:07)
[2025-02-08] MEDS: ONDANSETRON HCL 4 MG/2 ML VIAL ONE (08:07)
[2025-02-08] MEDS ORDERED: HYDR-4902 PO (08:25)
[2025-02-08] MEDS ORDERED: TAMS-35 PO (08:25)
[2025-02-08 08:29] VITALS: BP 162/78
== END 2025-02-08 08:36 | disposition home or self-care (01) ==
LOC: ER 05:32
DX: G43.009 Migraine without aura, not intractable, without status migrainosus (principal); N20.0 Calculus of kidney; N83.299 Other ovarian cyst, unspecified side; I10 Essential (primary) hypertension; E11.9 Type 2 diabetes mellitus without complications; Z79.899 Other long term (current) drug therapy; Z90.89 Acquired absence of other organs; Z90.49 Acquired absence of other specified parts of digestive tract; Z88.5 Allergy status to narcotic agent
CPT/HCPCS: 70450; 74176; 96361; 96374; 96375; 96376; 99285; J1171; J2405; J7040; 96360